=== PATIENT | female | born 1975 | race African-American/Black ===

== ENCOUNTER 2016-10-17 10:52 | Emergency (ER) | payer MEDICAID, OTHER ==
[~2016-10-17] VITALS: Ht 175.3 cm; Wt 81.6 kg
[2016-10-17 11:54] LABS: Basophils # (auto) 0 uL; Basophils % (auto) 0.4 % (0.0-2.0); Eosinophils # (auto) 0.1 uL; Eosinophils % (auto) 3.1 % (0.0-7.0); Hematocrit 41.3 % (36.0-46.0); Hemoglobin 14.1 g/dL (12.2-16.2); Lymphocytes # (auto) 1.3 uL; Lymphocytes % (auto) 42.5 % (10.0-50.0); Mean Corpuscular Hgb Conc. 34.2 g/dL (32.0-36.0); Mean Corpuscular Volume 96.4 fL (80.0-100.0); Monocytes # (auto) 0.5 uL; Monocytes % (auto) 15.3 % (0.0-12.0); Neutrophils # (auto) 1.2 uL; Neutrophils % (auto) 38.7 % (37.0-80.0); Platelet Count (auto) 317 10^3/uL (140-450); Red Cell Distribution Width 13.6 % (11.6-16.0); White Blood Cell 3.1 10^3/uL (4.4-10.8)
[2016-10-17 11:59] LABS: Urine Bilirubin Negative (Negative); Urine Color Yellow (Yellow); Urine Glucose Normal (Normal); Urine Hyaline Cast FEW /lpf (0 - 2); Urine Ketone Negative (Negative); Urine Mucus FEW (None Seen); Urine Nitrite Negative (Negative); Urine RBC 2 /hpf (0 - 4); Urine Squamous Epithelial Cell FEW /hpf (<5); Urine Urobilinogen Normal (Negative)
[2016-10-17 12:00] LABS: Urine Blood 1+ /uL (Negative)
[2016-10-17 12:21] LABS: Albumin 3.8 g/dL (3.4-5.0); BUN/Creatinine Ratio 11.6; Bilirubin, Total 0.3 mg/dL (0.2-1.0); Calcium 8.3 mg/dL (8.5-10.1); Potassium 3.5 mmol/L (3.5-5.1); Total Protein 7.9 g/dL (6.4-8.2)
[2016-10-17] MEDS ORDERED: ONDANSETRON HCL 4 MG/2 ML VIAL IV ONE (15:30)
[2016-10-17] MEDS ORDERED: LOPERAMIDE HCL 2 MG CAP PO ONE (15:30)
[2016-10-17] MEDS ORDERED: SODIUM CHLORIDE 0.9% 1,000 ML IV ONE (15:30)
[2016-10-17 19:10] VITALS: BP 134/94
== END 2016-10-17 19:34 | disposition home or self-care (01) ==
LOC: ER 10:52
DX: K29.00 Acute gastritis without bleeding (principal); F17.210 Nicotine dependence, cigarettes, uncomplicated; F12.10 Cannabis abuse, uncomplicated
CPT/HCPCS: 36415; 76705; 80053; 81001; 83690; 84702; 85025; 96361; 96374; 99285; J2405; J7030

== ENCOUNTER 2017-04-27 15:14 | Emergency (ER) | payer OTHER ==
[~2017-04-27] VITALS: Ht 167.6 cm; Wt 77.1 kg
[2017-04-27 18:42] VITALS: BP 109/67
[2017-04-27] MEDS ORDERED: HYDROcodone-ACET 5/325MG TAB PO ONE (18:45)
== END 2017-04-27 19:12 | disposition home or self-care (01) ==
LOC: ER 15:16
DX: K46.9 Unspecified abdominal hernia without obstruction or gangrene (principal); F17.210 Nicotine dependence, cigarettes, uncomplicated; F12.10 Cannabis abuse, uncomplicated

== ENCOUNTER 2017-06-30 15:51 | Emergency (ER) | payer OTHER ==
[~2017-06-30] VITALS: Ht 167.6 cm; Wt 75.7 kg
[2017-06-30 19:27] VITALS: BP 127/77
[2017-06-30] MEDS ORDERED: IBUPROFEN 600 MG TAB PO ONE (20:30)
[2017-06-30] MEDS ORDERED: BACLOFEN 10 MG TAB PO ONE (20:30)
== END 2017-06-30 22:45 | disposition home or self-care (01) ==
LOC: ER 15:59
DX: S16.1XXA Strain of muscle, fascia and tendon at neck level, initial encounter (principal); S30.0XXA Contusion of lower back and pelvis, initial encounter; R51 Headache; F17.210 Nicotine dependence, cigarettes, uncomplicated; W01.0XXA Fall on same level from slipping, tripping and stumbling without subsequent striking against object, initial encounter; Y93.89 Activity, other specified; Y92.69 Other specified industrial and construction area as the place of occurrence of the external cause; Y99.8 Other external cause status
CPT/HCPCS: 70450; 72040; 72070; 72100

== ENCOUNTER 2025-03-23 18:51 | Emergency (ER) | payer OTHER ==
[~2025-03-23] VITALS: Ht 167.6 cm; Wt 86.6 kg
[2025-03-23 19:03] VITALS: BP 123/72; PULSE 82; RESP 16; TEMP 98.8; O2SAT 100
[2025-03-23] MEDS: IBUPROFEN 800 MG TAB PO ONE (20:45)
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
== END 2025-03-23 22:02 | disposition home or self-care (01) ==
LOC: ER 18:51
DX: S13.4XXA Sprain of ligaments of cervical spine, initial encounter (principal); S80.02XA Contusion of left knee, initial encounter; S80.12XA Contusion of left lower leg, initial encounter; F12.90 Cannabis use, unspecified, uncomplicated; F10.90 Alcohol use, unspecified, uncomplicated; J45.909 Unspecified asthma, uncomplicated; Z98.890 Other specified postprocedural states; V89.2XXA Person injured in unspecified motor-vehicle accident, traffic, initial encounter; Y93.89 Activity, other specified; Y92.488 Other paved roadways as the place of occurrence of the external cause; Y99.8 Other external cause status
CPT/HCPCS: 72040; 73562